=== PATIENT | female | born 1950 | race Caucasian/White ===

== ENCOUNTER 2017-06-19 06:46 | Day surgery (SDC) | payer MEDICARE, BC ==
[2017-06-19] VITALS (9 sets, daily range): BP systolic 123–150; BP diastolic 55–83
[~2017-06-19] VITALS: Ht 152.4 cm; Wt 72.6 kg
[~2017-06-19 06:46] MED LIST: CRESTOR10 M1 ORAL; DIOVAN160 MG ORAL; SYNTHROID75 MCG ORAL; VITAMIN D31 M1 MC
[2017-06-19] MEDS ORDERED: LR 1000ml 1,000 ML IVLG SCH (07:00)
--- NOTE | 2017-06-19 07:49 | Short Stay Surgery H&P ---
History of Present Illness History of Present Illness Chief Complaint Abdominal pains, GERDs and rectal bleeding/screening colon HPI Amy Heck is a 66 year old female who was admitted on for Gerd,Heart Burn/ rectal bleeding Patient History Allergies: Coded Allergies: No Known Allergies (Unverified , 06/18/17) PAST MEDICAL HISTORY: (1) Hypothyroid (2) Hyperlipidemia (3) Hypertension Past Surgeries: Social History: Medication History Scheduled Levothyroxine Sodium* (Synthroid*), 75 MCG ORAL DAILY, (Reported) Rosuvastatin Calcium (Crestor), 5 MG ORAL DAILY, (Reported) Valsartan (Diovan), 160 MG ORAL DAILY, (Reported) Miscellaneous Medications Cholecalciferol (Vitamin D3) (Vitamin D3), 1 ML MC, (Reported) Review of Systems Cardiovascular: Reports: no symptoms Respiratory: Reports: no symptoms Genitourinary: Reports: no symptoms Neurologic: Reports: no symptoms Endocrine: Reports: thyroid Hematologic: Reports: no symptoms Physical Exam Vital Signs Last Vital Signs Date Time Temp Pulse Resp B/P Pulse Ox O2 Delivery O2 Flow Rate FiO2 06/19/17 07:09 97.1 89 20 150/83 99 Room Air Skin: normal HENT: normal Heart: normal Lungs: normal Abdomen: normal Extremities: normal Genitourinary: normal Plan Plan of Care Upper and lower GI endoscopy Preop Interventions None. Summary of Findings See the reports Final Diagnosis: Attestation Are the patient's medical conditions optimized for surgery? Attestation Response: yes MARIA C MARCUS Jun 19, 2017 07:49
--- NOTE | 2017-06-19 07:50 | Pre-Procedure Note/Attestation ---
Pre-Procedure Note/Attestation Complete Prior to Procedure Planned Procedure: left Procedure Narrative: the endoscopic examination of the upper and lower GI tract and biopsy. Indications for Procedure Pre-Operative Diagnosis: R/O peptic ulcer/CA Attestation I attest that I discussed the nature of the procedure; its benefits; risks and complications; and alternatives (and the risks and benefits of such alternatives ), prior to the procedure, with the patient (or the patient's legal lifeline representatives). I attest that, if there was a reasonable possibility of needing a blood transfusion, the patient (or the patient's legal lifeline representatives) was given the [place] [facility] [employer] [facility] standardized written summary, pursuant to the Vicente Aamir Blood Safety Act ([place] Health and Safety Code # 1645, as amended). I attest that I re-evaluated the patient just prior to the surgery and that there has been no change in the patient's H&P, except as documented below: ANGELINE,SAID Jun 19, 2017 07:50
[2017-06-19] MEDS ORDERED: Propofol 10mg/ml 20ml IV ONE (08:00)
[2017-06-19] MEDS ORDERED: Metoclopramide 10mg/2ml Inj ONE (08:00)
[2017-06-19] MEDS ORDERED: LR 1000ml ONE (08:00)
[2017-06-19] MEDS ORDERED: Lidocaine 1% MPF 10mg/ml 5ml ONE (08:00)
[2017-06-19] MEDS ORDERED: EPINEPHrine 1mg/10ml Syringe IV ONE (08:15)
--- NOTE | 2017-06-19 08:24 | Endoscopy Procedure Note ---
Endoscopy Procedure Note Indication for Procedure: GERDs and abdominal pains and rectal bleeding and screening colon Procedures Performed: EGD - Small Hiatal Hernia with friability at GEJ without ulceration/inflammation or Trinh's, otherwise normal upper GI endoscopy. Biopsy done per random from gastric body, colonoscopy - Minimal internal hemorrhoids and 5 mm pedunculated polyp found in proximal transverse colon compatible with adenamatous polyp, removed by cold biopsy forceps and the site injected with 5 CC epinephrine (1/04298 solution). Specimen: yes Pt Tolerated Procedure Well: Yes Estimated Blood Loss: none Anesthesiologist: Dr. Rose Anesthesia: moderate sedation Medication Given: see anesthesia record Implant(s) used?: No 50 yrs or older w/o bx or poly: Yes 10yrs. F/U not recommended: Yes If not recommended, why?: Med reason:<3 yrs.: System Reason:<3 yrs.: Last colonoscopy >= to 3yrs: Yes MARIA C MARCUS Jun 19, 2017 08:24
--- NOTE | 2017-06-19 08:26 | Discharge Instructions ---
Discharge Instructions Discharge Instructions Follow up with: See the doctor in office after 2 weeks. For Congestive Heart Failure Reminder Report to your physician any weight gain of 5 pounds or more in one week. ANGELINE,MARIA C Jun 19, 2017 08:26
--- NOTE | 2017-06-19 08:36 | Immediate Post-Op Evaluation ---
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
--- NOTE | 2017-06-19 08:38 | Anethesia Preoperative Eval ---
Anesthesia Pre-op PMH/ROS General Date of Evaluation: Jun 19, 2017 Time of Evaluation: 08:36 Anesthesiologist: delores ASA Score: ASA 2 Mallampati Score Class I : Soft palate, uvula, fauces, pillars visible Class II: Soft palate, uvula, fauces visible Class III: Soft palate, base of uvula visible Class IV: Only hard plate visible Mallampati Classification: Class II Surgeon: angel Diagnosis: GERD Surgical Procedure: colonoscopy/EGD Anesthesia History: none Family History: no anesthesia problems Allergies: Coded Allergies: No Known Allergies (Unverified , 06/18/17) Medications: see eMAR Past Medical History Cardiovascular: Reports: HTN Pulmonary: Denies: COPD, MARIELY, asthma, other Gastrointestinal/Genitourinary: Denies: CRI, ESRD, GERD, other Neurologic/Psychiatric: Denies: CVA, TIA, dementia, depression/anxiety, other Endocrine: Reports: hypothyroidism HEENT: Denies: [place] (L), [place] (R), cataract (L), cataract (R), glaucoma, other Hematology/Immune: Denies: DVT, anemia, bleeding disorder, other Musculoskeletal/Integumentary: Denies: DDD, DJD, OA, RA, edema, other PSxH Narrative: none Anesthesia Pre-op Phys. Exam Physician Exam Last Vital Signs Date Time Temp Pulse Resp B/P Pulse Ox O2 Delivery O2 Flow Rate FiO2 06/19/17 07:09 97.1 89 20 150/83 99 Room Air Constitutional: NAD Neurologic: CN 2-12 intact Cardiovascular: RRR Respiratory: CTA Gastrointestinal: S/NT/ND Airway Exam Mallampati Score: Class II MO: full ROM: full Dentures: no lower, no upper Anesthesia Pre-op A/P Studies Pre-op Studies: EKG - SR Risk Assessment & Plan Plan: mac Status Change Before Surgery: No Pre-Antibiotics Drug: none TANA CARR DAMPENER Jun 19, 2017 08:37
--- NOTE | 2017-06-19 09:40 | 48 Hour Post Anesthesia Eval ---
Post Anesthesia Evaluation Procedure: EGD/Colonoscopy Date of Evaluation: Jun 19, 2017 Time of Evaluation: 09:40 Blood Pressure Systolic: 133 0: 75 Pulse Rate: 67 Respiratory Rate: 14 O2 Sat by Pulse Oximetry: 100 Airway: patent Nausea: No Vomiting: No Hydration Status: adequate Mental Status/LOC: patient returned to baseline Post-Anesthesia Complications: none Follow-up care needed: N/A TANA CARR CRNA Jun 19, 2017 09:40
--- NOTE | 2017-06-19 12:15 | Operative Note - Dictated ---
DATE OF OPERATION: 06/19/2017 PROCEDURE: Total colonoscopy with polypectomy. SURGEON: Mathew Amaya M.D. PREOPERATIVE DIAGNOSES: 1. Abdominal pain. 2. History of hemorrhoids. 3. Rectal bleeding. POSTOPERATIVE DIAGNOSES: 1. Minimal internal hemorrhoid. 2. Incidental finding of a 5 millimeter pedunculated adenomatous polypoid lesion over the proximal transverse colon, which was removed with cold forceps and injected with epinephrine 1:10,000 solution, otherwise complete normal study up to the base of the cecum as examined. MEDICATION USED: Per Dr. Figueroa, anesthesiologist. INSTRUMENT: GIF Olympus videocolonoscope. DESCRIPTION OF PROCEDURE: The patient after arriving at the endoscopy unit, was told about risks and benefits of the procedure, which she accepted and signed the informed consent. She was then put on the left lateral decubitus position. At this time, the scope was gradually advanced into the rectal area and a retroflexion maneuver, which was applied revealed evidence of very minimal internal hemorrhoids of no great significance. There was no friability or bleeding. At this time, the scope was passed into the rectum and gradually advanced into the rectosigmoid, descending colon all the way to the splenic flexure. All these areas remained to be normal. The colon cleanup was excellent. Finally, the scope was advanced into transverse colon reaching to the proximal transverse, where incidentally a 5 millimeter pedunculated benign-looking polypoid lesion was found. It was grabbed with cold snare and was totally removed and the specimen was sent to the pathology lab. The site of the polypectomy revealed from bleeding which was injected with epinephrine solution 1/10,000 which finally completely stopped bleeding. At this point, the scope was passed into the right colon all the way to the base of the cecum and these areas also remained to be completely normal. At this point, the scope within 8 minutes gradually pulled out and re-evaluation of the colon and the site of polypectomy were found to be completely none significant and normal. The patient tolerated the procedure well and left endoscopy room in a good condition. Ramsey Amaya M.D. DR: NADER JOB#: [id number] CC:
--- NOTE | 2017-06-19 13:01 | Operative Note - Dictated ---
DATE OF OPERATION: 06/19/2017 PROCEDURE: Esophagogastroduodenoscopy with biopsy. PREOPERATIVE DIAGNOSES: 1. Abdominal pain. 2. History of gastroesophageal reflux. POSTOPERATIVE DIAGNOSES: A small hiatal hernia with friability of gastroesophageal junction without any evidence of Rtinh's or ulcerations, inflammatory process, etc. Otherwise, completely normal upper gastrointestinal endoscopy. Biopsy was done per random from gastric body. MEDICATIONS USED: Per Dr. Rose, anesthesiologist. INSTRUMENT: GIF Olympus upper gastrointestinal video endoscope. DESCRIPTION OF PROCEDURE: The patient after arriving endoscopy unit, was told about risks and benefits of the procedure, which she accepted and signed the informed consent. She was then put on the left lateral decubitus position. After adequate IV sedation, the scope was gently passed through the cricopharyngeal area, was lodged in the upper esophagus, and gradually advanced towards gastroesophageal junction. The entire length of the esophagus looked normal without any evidence of pathology such as a stricture, varices, inflammatory process, exudate, etc. Finally, the scope reached to GE junction, which was completely normal except friability and a small streaks of blood over this area without any evidence of source such as ulcers, polyps, tumors, inflammatory process, etc. There was no Trinh's. No strictures. The scope was subsequently passed into the normal looking stomach. Gastric cavity was distended. The areas of the fundus and the body and the antrum were examined in a gradual fashion revealing normal gastric mucosa without any evidence of tumors, polyps, ulcers, hemangioma, etc. One random biopsy from gastric body obtained and subsequently scope was passed into the antrum, from there into the pylorus. First and second portion of duodenum were also examined carefully and . At this time, the scope was pulled back into the stomach. A retroflexion maneuver was applied and the area of the gastroesophageal junction was examined in a closer fashion, which again revealed normal findings. Finally, scope was pulled out and procedure was terminated. The patient tolerated the procedure well. Said Angella Amaya DR: JASON JOB#: [id number] CC:
== END 2017-06-19 09:40 | disposition home or self-care (01) ==
LOC: GAS 06:46
DX: Z12.11 Encounter for screening for malignant neoplasm of colon (principal); D12.3 Benign neoplasm of transverse colon; K64.8 Other hemorrhoids; K29.50 Unspecified chronic gastritis without bleeding; K44.9 Diaphragmatic hernia without obstruction or gangrene; E03.9 Hypothyroidism, unspecified; E78.5 Hyperlipidemia, unspecified; I10 Essential (primary) hypertension
CPT/HCPCS: 43239; 45380; J0171; J2405; J2704; J2765; J7120; 94003; 94150